=== PATIENT | female | born 1980 | race Hispanic/Latino ===

== ENCOUNTER → 2016-05-07 | Emergency (ER) | payer MEDICAID ==
[~2016-05-07] MED LIST: Lactated Ringer's 1,000 ML IV SCH
[2016-05-07 04:32] VITALS: BMI 30.2
[2016-05-07 05:03] LABS: RBC URINE 3 /hpf (0-3); URINE BILIRUBIN NEGATIVE (NEGATIVE); URINE BLOOD NEGATIVE (NEGATIVE); URINE COLOR STRAW (YELLOW); URINE GLUCOSE (UA) NEG (Normal); URINE KETONE TRACE mg/dL (NEGATIVE); URINE LEUKOCYTE ESTERASE NEG Leu/uL (Negative); URINE PROTEIN NEGATIVE (NEGATIVE); URINE UROBILINOGEN 0.2-1.0 mg/dL (0.2-1.0); WBC URINE 1 /hpf (0-5)
--- NOTE | 2016-05-07 08:07 | OBHP ---
Datetime: 05/07/2016 03:55 IP Adm Impression: Term, intrauterine IP Admit Plan: Observation/Evaluation Admit Comment, IP Provider: 35 y/o F @38.5w IUP by LMP presents for pelvic pain and increased urinary frequency. Patient states feeling severe pain since 01:00 today. Denies VB, LOF, CTXs, nausea or vomiting. She is tolerating PO. Denies flank pain or fever. Allergies: NKDA Meds: Levothyroxine 50mcg daily PNV PMHx: Depression/Schizoaffective disorder OBHx: 1 (2nd ) 3 SAB NSVDx6 LMP: 08/10/15 EDC: 05/16/16 by LMP ObLabs: A+, Rub Equivocal, GBS done on 04/30/16. Rest WNL SxhX: Cholecystectomy SHx: Denies x3 O: See above A: 35 y/o F IUP @ 38.5w presents for evaluation of labor Rule out UTI P: Observation No Active labor monitoring UA Akira Mcfarlane PGY1 Case discussed with Dr Donaldson Patient revaluated @06:00 UA WNL Still C/O Pelvic pain P: Cont Obs LR 1L IV bolus OBH ADDENDUM: pt seen _ examined by me. agree with above. pt states she has intemittent bilateral LQ abd pain wh ich is along lateral areas of abd. she denies n/v, cramping, diarrhea or constipation. o: repeat exam @ 7:45 cl/th/h ua neg i: 38.4wks with lateral abd pain may be musculoskeletal Reassuring Status p: d/c home f/u for sched ob appt and bpp today. kick counts labor precautions tylenol 650 x1. pt advised she may take tylenol sparingly for pain Pelvic Type - PN: Adequate Extremities - PN: Normal Abdomen - PN: Normal Back - PN: Normal Lungs - PN: Normal Heart - PN: Normal Thyroid - PN: Normal HEENT - PN: Normal General - PN: Normal FHR - Baseline A Provider: 140 Contraction Comments Provider: no Comments, ACOG Physical Exam: VE: Fingertip, posterior. Bedside US: Vertex Gestation - Est Wks by US: 38.5 IP Hx Assessment: The History has been Reviewed and is Current Vital Signs Provider: Reviewed; Within Normal Limits IP Chief Complaint: Maternal discomfort NICHD Variability Prov Fetus A: Moderate 6-25bpm NICHD Accel Fetus A IP Provider: [id number] FHR Category Provider Fetus A: Category I NICHD Decel Fetus A IP Provider: None Dilatation, Provider: fingertip Genitourinary Exam: Normal
== END | disposition home or self-care (01) ==
LOC: H.EROB2 03:13
DX: O47.1 False labor at or after 37 completed weeks of gestation (principal); Z3A.38 38 weeks gestation of pregnancy; Z86.59 Personal history of other mental and behavioral disorders

== ENCOUNTER 2018-04-22 23:45 | Emergency (ER) | payer MEDICAID ==
[2018-04-22 23:45] VITALS: BMI 30.2
--- NOTE | 2018-04-23 00:51 | ED PDOC ---
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 Patient states she noticed redness and swelling on right side of nose, which has since spread to right side of face. Patient has been taking Tylenol without improvement. + nasal congestion. Denies fever, nausea /vomiting, cough. Past Medical History Reviewed: Historical Data, Nursing Documentation, Vital Signs Vital Signs: Last Vital Signs Temp 97.5 F L 04/22/18 23:58 Pulse 88 04/22/18 23:58 Resp 16 04/22/18 23:58 BP 125/81 04/22/18 23:58 Pulse Ox 100 04/22/18 23:58 - Medical History PMH: Depression (hx psychosis), Gastritis, Hypothyroidism, Schizophrenia Denies: Diabetes, Hepatitis, HIV, HTN, Seizures, Sexually Transmitted Disease - Surgical History Surgical History: Cholecystectomy - Family History Family History: States: Unknown Family Hx - Home Medications Home Medications: Ambulatory Orders Medication Instructions Recorded Levothyroxine Sodium [Synthroid] 50 mcg PO QAM 07/02/15 traZODone [Desyrel] 50 mg PO HS #5 tab 07/02/15 Cholecalciferol [Vitamin D 1000 IU] 1,000 unit PO DAILY 07/03/15 Fluoxetine HCl [Prozac] 40 mg PO DAILY 07/03/15 Ibuprofen [Motrin Tab] 800 mg PO Q8H PRN 07/03/15 traMADol [Ultram] 50 mg PO Q8H PRN 07/03/15 Vits96/Iron Fum/Folic 1 tab PO DAILY #100 tab 09/26/15 [] Clindamycin [Cleocin] 300 mg PO QID #40 cap 04/23/18 traMADol [Ultram] 50 mg PO Q8 PRN #12 tab 04/23/18 - Allergies Allergies/Adverse Reactions: Allergies Allergy/AdvReac Type Severity Reaction Status Date / Time No Known Allergies Allergy Verified 04/22/18 23:57 Review of Systems ROS Statement: Except As Marked, All Systems Reviewed And Found Negative ENT: Positive for: Nose Congestion Skin: Positive for: Other (facial pain) Physical Exam - Reviewed Nursing Documentation Reviewed: Yes Vital Signs Reviewed: Yes - Physical Exam Appears: Positive for: Well, Non-toxic, No Acute Distress Head Exam: Positive for: ATRAUMATIC, NORMAL INSPECTION, NORMOCEPHALIC Skin: Positive for: Rash (skin edema, thickening, erythema noted right side of nose extending to right maxilla. ) ENT: Positive for: Other (+swelling and tenderness noted inside right nare, lateral aspect) Neck: Positive for: Normal, Painless ROM Cardiovascular/Chest: Positive for: Regular Rate, Rhythm Respiratory: Positive for: Normal Breath Sounds Extremity: Positive for: Normal ROM Neurological/Psych: Positive for: Awake, Alert, Oriented (x3) - Laboratory Results Result Diagrams: 04/23/18 01:08 04/23/18 01:08 - ECG O2 Sat by Pulse Oximetry: 100 - Progress ED Course And Treament: -cbc -cmp -blood culture -IV toradol -CT facial bones with IV contrsat CT scan of the facial bones. Indication: Right nasal/facial redness and swelling. Technique: Axial CT scan images with contrast. Reformatted coronal and sagittal images. Findings: Right perimandibular/facial cellulitis without drainable abscess formation. Adjacent reactive lymphadenopathy with the largest in the right submandibular space measuring 1.3 cm. No evidence of osteomyelitis or intraosseous abscess formation. Normal bilateral orbital contents. Normal bilateral medial and inferior orbital casanova. Normal bilateral maxillary bones. Normal bilateral maxillary sinuses. Normal bilateral frontozygomatic arches. Normal bilateral zygomatic temporal arches. Normal nasal bones. Normal anterior nasal spine. Normal soft tissue structures. There is no demonstrated fracture. Mild chronic mucosal inflammatory changes in the paranasal sinuses. Impression: Right facial/mandibular cellulitis without drainable abscess formation. Reactive lymphadenopathy. Thank you for your kind referral of this patient Case discussed with ED attending Dr. Vivar, will give IV antibiotic dose and d/c with PO antibiotics IV clindamycin ordered Patient educated on findings, discharged with rx Clindamycin, tramadol Advised follow up with PMD within 2-3 days Return precautions given Disposition - Clinical Impression Clinical Impression: Facial cellulitis - Patient ED Disposition Is Patient to be Admitted: No Counseled Patient/Family Regarding: Studies Performed, Diagnosis, Need For Followup, Rx Given - Disposition Disposition: Routine/Home Disposition Time: 04:47 Condition: IMPROVED Additional Instructions: Follow up with your primary doctor within 2-3 days Take medication as directed Return to ED for fever, worsening pain/redness/swelling, or other concerning symptoms Prescriptions: Clindamycin [Cleocin] 300 mg PO QID #40 cap traMADol [Ultram] 50 mg PO Q8 PRN #12 tab PRN Reason: Pain, Severe (8-10) Instructions: Cellulitis and Erysipelas (Skin Infections) Forms: [employer] (Fijian)
[2018-04-23 01:32] LABS: BASO # 0.1 K/uL (0.0-0.2); BASO % 1.1 % (0.0-2.0); EOS # 0.2 K/uL (0.0-0.7); EOS % 2.1 % (0.0-4.0); HEMOGLOBIN 12.1 g/dL (12.0-16.0); LYMPH # 3.2 K/uL (1.0-4.3); LYMPH % 29.1 % (20.0-40.0); MEAN CELL VOLUME 86.9 fl (81.0-99.0); MEAN CORPUSCULAR HEMOGLOBIN 29.3 pg (27.0-31.0); MEAN CORPUSCULAR HGB CONC 33.7 g/dL (33.0-37.0); MEAN PLATELET VOLUME 7.9 fl (7.2-11.7); MONO # 0.6 K/uL (0.0-0.8); MONO % 5.5 % (0.0-10.0); NEUT # 6.8 K/uL (1.8-7.0); NEUT % 62.2 % (50.0-75.0); RBC 4.13 Mil/uL (3.80-5.20); RED CELL DISTRIBUTION WIDTH 14.2 % (11.5-14.5)
[2018-04-23 01:41] LABS: ALB/GLOB RATIO 1.1 (1.0-2.1); ALBUMIN 4.1 g/dL (3.5-5.0); ALT/SGPT 57 U/L (9-52); AST/SGOT 45 U/L (14-36); BLOOD UREA NITROGEN 15 mg/dl (7-17); CALCIUM 9.4 mg/dL (8.4-10.2); GFR NON-AFRICAN AMERICAN > 60
[2018-04-23] MEDS ORDERED: Sodium Chloride 0.9% 50 ML IV ONE (01:46)
[2018-04-23] MEDS ORDERED: Iohexol 300 100 ML IJ ONE (01:46)
[2018-04-23] MEDS ORDERED: Clindamycin 600mg/50ml D5W 600 MG/50 ML VIAL IVPB STA (03:30)
[2018-04-23 04:55] VITALS: BP 112/60; PULSE 71; RESP 17; TEMP 97.4; O2SAT 99
--- NOTE | 2018-04-23 10:06 | CT ---
Date of service: 04/23/2018 PROCEDURE: CT MAXILLOFACIAL BONES WITH CONTRAST HISTORY: right nasal/facial pain/redness/swelling COMPARISON: None. TECHNIQUE: Contiguous axial CT images of the maxillofacial bones were obtained following administration of IV contrast. Coronal and sagittal reformats were generated. Intravenous contrast Dose: 85 mL Omnipaque 300 Radiation dose: Total exam DLP = 659.12 mGy-cm. This CT exam was performed using one or more of the following dose reduction techniques: Automated exposure control, adjustment of the mA and/or kV according to patient size, and/or use of iterative reconstruction technique. FINDINGS: NASAL BONES: Within normal limits. ORBITS: The globes are symmetric. No acute abnormality. PARANASAL SINUSES/ MASTOIDS: Predominantly clear. MAXILLA: Normal. MANDIBLE/ TEMPOROMANDIBULAR JOINTS: Unremarkable. SKULL BASE: Unremarkable. TEMPORAL BONES: Middle ears and mastoid grossly unremarkable. OTHER FINDINGS: There are subtle asymmetric inflammatory changes in the deep subcutaneous tissue overlying the right parotid and mandible. There is also mild asymmetric increased density in the right parotid gland. There is asymmetric enlargement of the right submandibular lymph nodes. IMPRESSION: Findings may represent mild right inferior facial cellulitis however acute nonspecific parotitis is also differential consideration. Reactive right submandibular lymphadenopathy. Clinical follow-up is advised. A preliminary report was provided by [employer]. The final report is tagged to the PA review folder.
== END 2018-04-23 05:01 | disposition home or self-care (01) ==
LOC: H.ER 23:45
DX: L03.211 Cellulitis of face (principal); E03.9 Hypothyroidism, unspecified
CPT/HCPCS: 70488; 80053; 81025; 85025; 87040; 96365; 99283; J1885; J2270; Q9967